=== PATIENT | male | born 1955 | race African-American/Black ===

== ENCOUNTER 2016-06-30 21:22 | Emergency (ER) | payer OTHER ==
[~2016-06-30 21:22] MED LIST: BACLOFEN10 M1 PO; IBUPROFEN600 M1 PO; ULTRAM50 M1 PO
[2016-06-30 21:25] VITALS: BP 129/76
--- NOTE | 2016-06-30 21:53 | ED DYSPNEA/ASTHMA COMPLAINT ---
History of Present Illness General Chief Complaint: Wheezing/Asthma Stated Complaint: ASTHMA ACTING UP Source: patient Exam Limitations: no limitations Vital Signs & Intake/Output Vital Signs & Intake/Output Vital Signs Date Time Temp Pulse Resp B/P B/P Pulse O2 O2 Flow FiO2 Mean Ox Delivery Rate 06/307 83 20 97 Room Air 06/30 2124 97.4 78 22 129/76 90 Room Air ED Intake and Output 07/01 0000 06/30 1200 Intake Total Output Total Balance Patient 190 lb Weight Allergies Coded Allergies: No Known Allergies (07/29/15) Reconcile Medications Baclofen 10 MG TABLET 1 TAB PO TIDPRN PRN muscle spasm/strain Ibuprofen 600 MG TABLET 1 TAB PO Q6PRN PRN pain with food Prednisone 10 MG TABLET 1 TAB PO DAILY ASTHMA 4 TABS PO X 3 DAYS, 3 TABS PO X 3 DAYS, 2 TABS PO X 3 DAYS, 1 TAB PO X 3 DAYS Tramadol HCl (Ultram) 50 MG TABLET 1-2 TAB PO Q6PRN PRN severe pain Triage Note: PER PT ASTHMA BOTHERING ME X 1 WEEK, USING OTC BECAUSE NO INSURANCE YET, I NEED PREDNISONE Triage Nurses Notes Reviewed? yes Onset: Gradual Duration: week(s): (1) Timing: recent history Severity: moderate Activities at Onset: none HPI: Patient is a 61-year-old male with history of asthma presenting to the emergency Department chief complaint of shortness of breath worsening over the past 1 week. Also reporting upper respiratory congestion. He reports that he feels very tight in his chest and wheezy. History of similar symptoms. He does get relief with his nebulizer treatments at home but reports when he gets this bad he usually needs prednisone. He reports that he does have a primary care physician but he owes them money so he will be seen by them. He is here for a prescription for prednisone. Denies any nausea or vomiting. No palpitations. Denies any chest pain. He does report a dry cough. (STEFANIE LITTLE) Past History Travel History Traveled to [place] past 21 day No Medical History Any Pertinent Medical History? see below for history Neurological: NONE Cardiovascular: hypertension, hyperlipidemia Respiratory: asthma Renal: NONE Musculoskeletal: NONE Psychiatric: NONE Endocrine: NONE Surgical History Surgical History: non-contributory Psychosocial History What is your primary language Chilean Tobacco Use: Never used Family History Hx Contributory? No (STEFANIE LITTLE) Review of Systems Review of Systems Constitutional: Reports: no symptoms. Comments Review of systems: See HPI, All other systems negative. Constitutional, no chills fever or weight loss HEENT: No visual changes no sore throat Cardiovascular: No chest pain ,palpitation , orthopnea or ankle swelling Skin, no jaundice no rashes Respiratory: No sputum or hemoptysis GI: No nausea no vomiting : No dysuria No hematuria Muscle skeletal: no back pain, no neck pain, Neurologic: No numbness no confusion NO CORONA Psych: No stress anxiety or depression,. Heme/endocrine: No bruising no bleeding no polyuria or polydipsia Immunology: No splenectomy or history of AIDS (STEFANIE LITTLE) Physical Exam Physical Exam General Appearance: well developed/nourished, no apparent distress, alert, awake , comfortable Respiratory: wheezing Comments: Well-developed well-nourished person in no acute distress HEENT: Pupils equally round and reactive to light and accommodation. Nose is atraumatic. External auditory canal and Tympanic membranes clear. Pharynx normal. No swelling or edema. Neck: Supple, no lymphadenopathy, normal range of motion without pain or tenderness Back: Nontender, no CVA tenderness. Full range of motion Cardiovascular: Regular rate and rhythms no murmurs rubs or gallops, normal JVP Respiratory: Chest nontender. No respiratory distress.slight wheezing to auscultation bilaterally Extremity: No edema Neuro: Alert oriented x3 Skin: No appreciable rash on exposed skin, skin is warm and dry. Psych: Mood and affect is normal, memory and judgment is normal. Core Measures ACS in differential dx? No Severe Sepsis Present: No Septic Shock Present: No (STEFANIE LITTLE) Progress Differential Diagnosis: ASTHMA EXACERBATION, UPPER RESPIRATORY INFECTION, SINUSITIS, PNEUMONIA, BRONCHITIS Plan of Care: Current Medications Sig/Hiren Start time Last Medication Dose Stop Time Status Admin Prednisone 60 MG ONCE ONE 06/30 2199 UNVr 06/30 2200 Initial ED EKG: none Comments: Lungs are essentially clear to auscultation except for mild wheezing at the bases. Patient does not want to go for x-ray as he does not have insurance and does not want a large bowel. Patient once on the prescription for prednisone and he will follow-up with his doctors. Patient is nontoxic. Oxygen saturation is 97 in the room. (STEFANIE LITTLE) Departure Departure Time of Disposition: 2158 Disposition: HOME OR SELF CARE Condition: Stable Clinical Impression Primary Impression: Asthma exacerbation Referrals: KAILEE HUANG MD (PCP/Family) Additional Instructions: Follow-up with your primary care physician call TO MAKE appointment. Take prednisone as prescribed. You're given the first dose tonight. Return for worsening symptoms or concerns. Continue using nebulizer treatment at home as previously directed. Departure Forms: Customer Survey General Discharge Information Prescriptions: Current Visit Scripts Prednisone 1 TAB PO DAILY #30 TAB 4 TABS PO X 3 DAYS, 3 TABS PO X 3 DAYS, 2 TABS PO X 3 DAYS, 1 TAB PO X 3 DAYS (STEFANIE LITTLE) PA/[employer] Co-Sign Statement Statement: ED Attending supervision documentation- [] I saw and evaluated the patient. I have also reviewed all the pertinent lab results and diagnostic results. I agree with the findings and the plan of care as documented in the PA's/[employer]'s documentation. [X] I have reviewed the ED Record and agree with the PA's/[employer]'s documentation. [] Additions or exceptions (if any) to the PAs/[employer]'s note and plan are summarized below: [] (RACHEL BUENO,BEST) Critical Care Note Critical Care Note Critical Care Time: non-applicable (STEFANIE LITTLE)
[2016-06-30] MEDS ORDERED: PREDNISONE10 M2 PO (22:00)
== END 2016-06-30 22:14 ==
LOC: ERH 21:22
DX: J45.901 Unspecified asthma with (acute) exacerbation (principal)